=== PATIENT | female | born 1980 | race Caucasian/White ===

== ENCOUNTER 2021-08-26 08:04 | Outpatient (CLI) | payer OTHER, SELFPAY ==
--- NOTE | 2021-08-26 08:12 | XR_ITS ---
WS: [id number] THORACIC SPINE TECHNIQUE: 3 views of the thoracic spine CLINICAL INFORMATION: CHRONIC BACK PAIN COMPARISON: None. FINDINGS: Postoperative changes dorsal pedicle minna and screw fixation thoracic and lumbar spine. Laminar hooks in the upper thoracic spine. Pedicle screw fixation in the upper lumbar spine L1-L3. Interconnecting rods appear intact. Interbody bony fusion in the lower thoracic and upper lumbar spine. Osteopenia. T horacic kyphosis with bony fusion. IMPRESSION: Postoperative changes as described above. No acute appearing thoracic spine findings.
--- NOTE | 2021-08-26 08:12 | XR_ITS ---
WS: [id number] CERVICAL SPINE TECHNIQUE: 3 views of the cervical spine CLINICAL INFORMATION: CHRONIC BACK PAIN COMPARISON: None. FINDINGS: Normal cervical alignment. Normal C1-2 articulation. Mild disc space narrowing C7-T1. Normal preverte bral soft tissues. Normal dens. Postoperative changes partially visualized in the thoracic spine. XR/XR cervical spine 3V* [id number] IMPRESSION: Mild disc space narrowing C7-T1. Otherwise unremarkable cervical spine.
== END 2021-08-26 08:05 | disposition home or self-care (01) ==
LOC: RAD 08:10
PROVIDERS: PCP Clinical Nurse Specialist Adult Health; Visit Provider Clinical Nurse Specialist Adult Health
DX: M54.6 Pain in thoracic spine (principal); M54.2 Cervicalgia
CPT/HCPCS: 72040; 72072

== ENCOUNTER 2022-02-04 18:15 | Emergency (ER) | payer OTHER, SELFPAY ==
[2022-02-04 18:24] VITALS: BP 122/80; PULSE 84; RESP 16; TEMP 36.3; O2SAT 95; BMI 33.9
--- NOTE | 2022-02-04 18:27 | XRR_ITS ---
PROCEDURE INFORMATION: Exam: XR Left Shoulder Exam date and time: 02/04/2022 7:25 PM Age: 41 years old Clinical indication: Injury or trauma; Blunt trauma (contusions or hematomas); Shoulder; Injury date: 02-04-22; Injury details: Left arm pain after fall. Left arm pain after fall. ; Additional info: Trauma to left shoulder TECHNIQUE: Imaging protocol: Radiologic exam of the Left shoulder. Views: 2 or more views. COMPARISON: CR XR cervical spine 3V* [id number] 08/26/2021 8:28 AM FINDINGS: Bones/joints: No acute bony injury or malalignment in the left shoulder. Incompletely visualized surgical hardware in the thoracic spine. Soft tissues: Unremarkable soft tissues. XR/XR shoulder LT min 2V* [id number] IMPRESSION: No acute bony injury or malalignment in the left shoulder.
--- NOTE | 2022-02-04 18:27 | XRR_ITS ---
PROCEDURE INFORMATION: Exam: XR Left Wrist Exam date and time: 02/04/2022 7:33 PM Age: 41 years old Clinical indication: Injury or trauma; Fall; Blunt trauma (contusions or hematomas); Wrist; Left; Additional info: Trauma to left wrist. TECHNIQUE: Imaging protocol: Radiologic exam of the Left wrist. Views: 3 or more views. COMPARISON: No relevant prior studies available. FINDINGS: Bones/joints: Normal. Soft tissues: Normal. XR/XR wrist LT min 3V* [id number] IMPRESSION: No acute findings.
--- NOTE | 2022-02-04 19:32 | ED_ITS ---
HPI - Fall General: Chief Complaint: Fall Stated Complaint: fall/ L shoulder,arm and wrist pain Time Seen by Provider: 02/04/22 19:23 History of Present Illness: Patient is a 41-year-old female comes to the ED with left arm pain after fall. Occurred today just prior to arrival. Patient says she was walking outside and tripped over one of her cats and landed on her left arm and shoulder. She denies pain in her left wrist and left shoulder. Any movement in left arm worsens pain. Denies any head trauma or loss of consciousness. Associated symptoms-after fall: Denies abdominal pain, chest pain, headache(s), hematuria or neck pain Review of Systems Const: Denies: fever(s), chills or fatigue Eyes: Denies: change in vision or eye discomfort ENMT: Denies: throat pain, odynophagia, nasal discharge or nasal congestion Card: Denies: chest pain, palpitations, edema, swelling of feet/ankles, dyspnea on exertion or orthopnea Resp: Denies: dyspnea, productive cough or non-productive cough GI: Denies: abdominal pain, nausea, vomiting, diarrhea, constipation or hematochezia : Denies: flank pain, dysuria or hematuria Musc: Reports: extremity pain (Left shoulder and left wrist) and limited range of motion (Left shoulder left wrist due to pain); Denies: neck pain, back pain or extremity swelling Skin/Breast: Denies: rash or new lesions Neuro: Denies: headache(s), numbness in extremities or weakness in extremities PFS ED PFSH: Medical History Psychiatric care Surgical History No pertinent past surgical history Social History Smoking and tobacco status: current every day smoker (1/2 PPD) cigarettes Packs smoked per day: 0.5 Years cigarettes smoked: 37 Quit status (tobacco): has tried quititng Number of times tried to quit tobacco: 2 Second hand smoke exposure: No Smoking risk assessment/counseling performed?: No Alcohol intake: never Desire information about alcohol rehabilitation?: No Counseling given: No Desire information about substance/drug rehabilitation?: No Counseling given: No Physical Exam Const: COMMON NORMALS: no acute distress, patient oriented x3 and alert GENERAL APPEARANCE: cooperative and comfortable HENMT: COMMON NORMALS: normocephalic HEAD & SCALP: normocephalic MOUTH: Normal oral and palatal mucosa present THROAT: posterior oropharynx normal and uvula midline Neck/C-Spine: COMMON NORMALS: supple GENERAL: Yes normal visual inspection Resp: COMMON NORMALS: normal respiratory effort, No retractions, No use of accessory muscles and clear to auscultation bilaterally AUSCULTATION: clear to auscultation bilaterally Cardio: COMMON NORMALS: regular rate, regular rhythm, S1 normal heart sound present, S2 normal heart sound present, No gallops present (Cardio), No clicks present (Cardio), No murmurs present (Cardio) and Peripheral pulses 2+ throughout RATE: regular rate RHYTHM: regular rhythm HEART SOUNDS: S1 normal heart sound present and S2 normal heart sound present PERIPHERAL PULSES: Peripheral pulses 2+ throughout GI: COMMON NORMALS: Normal to inspection, nondistended, normoactive bowel sounds present, Soft to palpation, non-tender and no masses PALPATION: Yes Soft to palpation : COMMON NORMALS: Yes no CVA tenderness BLADDER/KIDNEY EXAM: Yes no CVA tenderness Back/Pelvis: COMMON NORMALS: no CVA tenderness Extremity: NARRATIVE EXTREMITY EXAM: Left shoulder?no visible deformity swelling noted. She has tenderness palpation over AC joint region. Limited range of motion due to pain. Neurovascular tact. Left wrist?no visible deformity or swelling noted. Full range of motion. Neurovascular intact. Neuro: COMMON NORMALS: patient oriented x3 SENSORIUM/ORIENTATION: Yes alert GAIT: Yes Normal gait present Skin: GENERAL SKIN EXAM: dry skin Course Vital Signs: Vital signs: Vital Signs Temperature 97.3 F L 02/04/22 18:24 Pulse Rate 84 02/04/22 18:24 Respiratory Rate 16 02/04/22 18:24 Blood Pressure 122/80 02/04/22 18:24 Pulse Oximetry 95 02/04/22 18:24 MDM - Fall Medical Decision Making Patient is a 41-year-old female comes to the ED with left arm pain after fall. Patient tripped over her cat outside and fell landed on her left arm and shoulder. Exam is benign. Vitals are stable. X-ray of left shoulder and left wrist showed no acute fractures or findings. Patient diagnosed with left arm pain and was discharged home with left shoulder sling. Follow-up with PCP in the next week for reevaluation. Return to ED precautions given. Patient understood and agreed with plan. Lab Data Radiology Impressions Wrist X-Ray 02/04/22 18:27 IMPRESSION: No acute findings. Discharge Plan Discharge Patient Disposition: Home Clinical Impression: Pain of left arm Condition: Stable Prescriptions: No Action azelastine 137 mcg (0.1 %) aerosol,spray 2 spray intranasal BID Rx Instructions: administer into each nostril ibuprofen 200 mg capsule 800 mg PO Q6H PRN acetaminophen [Tylenol] 325 mg capsule 650 mg PO BID PRN fexofenadine-pseudoephedrine [Heather-D 24 Hour] 180-240 mg tablet extended release 24 hr 1 tab PO QAM gabapentin 100 mg capsule 100 mg PO BID prazosin 5 mg capsule 10 mg PO .HS Qty: 60 2RF trazodone 100 mg tablet 100 mg PO .HS Qty: 30 2RF quetiapine [Seroquel XR] 150 mg tablet extended release 24 hr 150 mg PO .HS Qty: 30 2RF hydroxyzine pamoate 50 mg capsule 50 mg PO QID PRN (Reason: anxiety) Qty: 120 1RF duloxetine 60 mg capsule,delayed release(DR/EC) 120 mg PO DAILY Qty: 60 2RF bupropion HCl [Wellbutrin XL] 300 mg tablet extended release 24 hr 300 mg PO QAM Qty: 30 2RF Nucynta 50 mg tablet 50 mg PO BID PRN topiramate 100 mg tablet See Rx Instructions .ROUTE .COMPLEX Qty: 30 0RF Dose Instruction: Take 1 tablet by mouth once daily Rx Instructions: Take 1 tablet by mouth once daily Discharge Orders: Discharge ED (Routine); Ordered 02/04/22 Ordered By: Nicholas Prasad Referrals: Tai Jones NP [Primary Care Provider] - Discharge Diet: Regular Discharge Activity: Limit activity as instructed Activity Restrictions/Additional Instructions: Follow-up with medical provider as directed in the next 5 to 7 days for reevaluation. Continue taking all home medications as previously prescribed. Return to the ER or your medical provider if condition worsens. Please read and understand discharge instructions. Thank you for choosing [facility] for your healthcare needs today. Please realize this is an emergency room and that we are providing you with a medical screening exam and this may not be complete and all inclusive of all the testing and or work up that you may need to determine your ailment or severity of your illness. It is very important that you follow up as instructed or that you return to the Emergency Department should you have concerns or if your condition changes or worsens in any way. Coding Level of Care Code ED Room Cleaner for Akilah Fwd Exam Comprehensive
[2022-02-04] MEDS: ketorolac 60 mg/2 mL INJ IM (21:01)
[2022-02-04 21:30] VITALS: BP 129/81; PULSE 79; RESP 18; TEMP 36.6; O2SAT 99
== END 2022-02-04 21:30 | disposition home or self-care (01) ==
PROVIDERS: Emergency Provider Physician Assistant; PCP Clinical Nurse Specialist Adult Health
DX: M79.602 Pain in left arm (principal); F17.210 Nicotine dependence, cigarettes, uncomplicated
CPT/HCPCS: 73030; 73110; 96372; 99284; J1885

== ENCOUNTER 2022-06-13 06:40 | Emergency (ER) | payer OTHER, SELFPAY ==
[2022-06-13 06:45] VITALS: BP 179/97; PULSE 69; RESP 18; TEMP 37; O2SAT 96; BMI 32.3
--- NOTE | 2022-06-13 07:03 | ED_ITS ---
HPI - General Adult General: Chief complaint: General Medical Stated complaint: sob,sore throat Time Seen by Provider: 06/13/22 06:44 Source: patient Mode of arrival: ambulatory History of Present Illness: 42-year-old female presents emergency room with complaints of pharyngitis for the last 6 days. Increasing swelling and discomfort. Painful swallowing low-grade fever. Nonproductive cough. Has intermittently taken Tylenol with moderate relief of symptoms. Throat symptoms are progressively worsening however Onset (ago): day(s) Location: mouth (Throat) Severity: moderate Quality: sharp Pain Consistency: constant Relieving factors: none Exacerbating factors: none Associated symptoms: Reports fevers/chills; Deny chest pain, confusion, cough, diaphoresis, decreased appetite, dyspnea, headache(s), malaise, nausea, rash, palpitations, seizures, short of breath, syncope, vomiting or weakness Review of Systems Const: Reports: fever(s) and chills; Denies: malaise or diaphoresis ENMT: Reports: throat pain, enlarged tonsils, odynophagia and hoarseness; Denies: ear or mastoid pain, nasal discharge or nasal congestion Card: Denies: chest pain, palpitations or syncope Resp: Denies: dyspnea GI: Denies: abdominal pain, nausea, vomiting or hematemesis : Denies: flank pain, difficulty voiding, dysuria, urinary frequency or urinary urgency Musc: Denies: neck pain or back pain Skin/Breast: Denies: rash, pruritus or erythema Neuro: Denies: headache(s) or confusion PFS ED PFSH: Medical History Psychiatric care Surgical History No pertinent past surgical history Social History Smoking and tobacco status: current some day smoker cigarettes Packs smoked per day: 0.15 Years cigarettes smoked: 20 Quit status (tobacco): has tried quititng Number of times tried to quit tobacco: 2 Second hand smoke exposure: No Smoking risk assessment/counseling performed?: No Alcohol intake: current Alcohol intake frequency: holidays/special occasions only Alcohol type: hard liquor Desire information about alcohol rehabilitation?: No Counseling given: No Desire information about substance/drug rehabilitation?: No Counseling given: No Physical Exam Const: COMMON NORMALS: no acute distress GENERAL APPEARANCE: cooperative and comfortable ORIENTATION/CONSCIOUSNESS: Yes awake, Yes oriented to person, Yes oriented to place and Yes oriented to time HENMT: COMMON NORMALS: normocephalic, atraumatic, hearing grossly normal bilaterally, external ears normal, EAC's normal, TM's normal bilaterally, Normal nasal mucous membranes and turbinates present and moist oral mucous membranes HEAD & SCALP: normocephalic and atraumatic NOSE: Normal nasal mucous membranes and turbinates present EXTERNAL EAR: Yes external ears normal EXTERNAL AUDITORY CANAL: EAC's normal TYMPANIC MEMBRANE: TM's normal bilaterally THROAT: posterior oropharynx abnormal edema, erythema and exudates Neck/C-Spine: GENERAL: Yes lymphadenopathy Lymphadenopathy location: submandibular Resp: COMMON NORMALS: normal respiratory effort, No retractions, No use of accessory muscles and clear to auscultation bilaterally AUSCULTATION: clear to auscultation bilaterally Cardio: COMMON NORMALS: regular rate, regular rhythm and No murmurs present (Cardio) RATE: regular rate RHYTHM: regular rhythm GI: COMMON NORMALS: Soft to palpation and No hepatosplenomegaly present AUSCULTATION: Yes normoactive bowel sounds PALPATION: Yes Soft to palpation, No Tenderness to palpation present (GI), No Guarding due to palpation present (GI) and Yes No hepatosplenomegaly present Extremity: COMMON NORMALS: normal to inspection, capillary refill normal, no clubbing, cyanosis or edema, no calf tenderness and no pedal edema Neuro: SENSORIUM/ORIENTATION: Yes oriented to person, Yes oriented to place and Yes oriented to time Skin: COMMON NORMALS: no rashes or lesions noted GENERAL SKIN EXAM: no rashes or lesions noted Course Vital Signs: Vital signs: Vital Signs Temperature 98.6 F 06/13/22 06:45 Pulse Rate 69 06/13/22 06:45 Respiratory Rate 18 06/13/22 06:45 Blood Pressure 179/97 06/13/22 06:45 Pulse Oximetry 96 06/13/22 06:45 Oxygen Delivery Me thod 06/13/22 06:45 [facility] - General Adult Medical Decision Making Based on clinical presentation patient history of pharyngitis. Will treat with clarithromycin due to multiple allergies to 50 twice daily 10 days. Return to primary care if has recurrence. Medical Records I reviewed the patient's medical records. Discharge Plan Discharge Patient Disposition: Home Clinical Impression: Acute streptococcal pharyngitis Condition: Stable Prescriptions: New clarithromycin 250 mg tablet 250 mg PO BID 10 Days Qty: 20 0RF No Action azelastine 137 mcg (0.1 %) aerosol,spray 2 spray intranasal BID Rx Instructions: administer into each nostril ibuprofen 200 mg capsule 800 mg PO Q6H PRN acetaminophen [Tylenol] 325 mg capsule 650 mg PO BID PRN fexofenadine-pseudoephedrine [Heather-D 24 Hour] 180-240 mg tablet extended release 24 hr 1 tab PO QAM gabapentin 100 mg capsule 100 mg PO BID Nucynta 50 mg tablet 50 mg PO BID PRN bupropion HCl [Wellbutrin XL] 300 mg tablet extended release 24 hr 300 mg PO QAM Qty: 30 2RF divalproex [Depakote ER] 500 mg tablet extended release 24 hr 500 mg PO BID Qty: 60 2RF Rx Instructions: Take 2 tablets daily duloxetine 60 mg capsule,delayed release(DR/EC) 120 mg PO DAILY Qty: 60 2RF hydroxyzine pamoate 50 mg capsule 50 mg PO QID PRN (Reason: anxiety) Qty: 120 1RF prazosin 5 mg capsule 10 mg PO .HS Qty: 60 2RF quetiapine [Seroquel XR] 150 mg tablet extended release 24 hr 150 mg PO .HS Qty: 30 2RF ropinirole 1 mg tablet 2 mg PO .HS Qty: 60 2RF trazodone 100 mg tablet 100 mg PO .HS Qty: 30 2RF topiramate 50 mg tablet See Rx Instructions .ROUTE .COMPLEX Qty: 30 0RF Dose Instruction: Take 1 tablet by mouth once daily Rx Instructions: Take 1 tablet by mouth once daily Discharge Orders: Discharge ED (Routine); Ordered 06/13/22 Ordered By: Sathish Menon Referrals: Tai Jones STAFF COMMAND AND CONTROL OFFICER [Primary Care Provider] - Patient Instructions: Opioid Safety, Pain Management Activity Restrictions/Additional Instructions: You were seen for pharyngitis. Based on your exam is most likely a strep pharyngitis we will treat with clarithromycin 250 mg 1 pill twice daily for 10 days complete the full course of antibiotics even if you begin to feel better. Coding Level of Care Code ED Bindery Machine Operator for Akilah Strong
== END 2022-06-13 07:31 | disposition home or self-care (01) ==
PROVIDERS: Emergency Provider Family Medicine; PCP Clinical Nurse Specialist Adult Health
DX: J02.0 Streptococcal pharyngitis (principal); F17.210 Nicotine dependence, cigarettes, uncomplicated
CPT/HCPCS: 99283

== ENCOUNTER 2022-12-02 22:14 | Emergency (ER) | payer OTHER, SELFPAY ==
[2022-12-02 22:31] VITALS: BP 148/92; PULSE 81; RESP 14; TEMP 36.6; O2SAT 98; BMI 35.5
[2022-12-02 23:39] VITALS: BP 127/88; PULSE 76; RESP 15; TEMP 36.7; O2SAT 97
--- NOTE | 2022-12-03 01:23 | ED_ITS ---
HPI - Eye Problem General: Chief complaint: Eye Problems Stated complaint: eye pain, blurry vision History of Present Illness: 42-year-old female comes in today with crusting in the eyes and worsening symptoms since Thursday. Patient has been using [id number] eye care medications with minimal to no relief. Patient had used some antibiotic eyedrops leftover from her grandsons treatment for recent eye infection. Patient appears nontoxic. Patient appears no acute distress. Associated symptoms: Reports headache(s); Denies nausea, neck pain or vomiting Review of Systems Const: Reports: chills Eyes: Reports: eye discharge and eye redness ENMT: Reports: throat pain, nasal congestion and sinus pain Card: Denies: chest pain Resp: Denies: dyspnea GI: Denies: nausea or vomiting : Denies: flank pain Musc: Denies: neck pain Skin/Breast: Denies: rash Neuro: Reports: headache(s) PFS ED PFSH: Medical History Psychiatric care Surgical History No pertinent past surgical history Social History Smoking and tobacco status: current some day smoker cigarettes Packs smoked per day: 0.15 Years cigarettes smoked: 20 Quit status (tobacco): has tried quititng Number of times tried to quit tobacco: 2 Second hand smoke exposure: No Smoking risk assessment/counseling performed?: No Alcohol intake: current Alcohol intake frequency: holidays/special occasions only Alcohol type: hard liquor Desire information about alcohol rehabilitation?: No Counseling given: No Substance/Drug Use: former Desire information about substance/drug rehabilitation?: No Counseling given: No Physical Exam Const: COMMON NORMALS: alert HENMT: COMMON NORMALS: normocephalic HEAD & SCALP: normocephalic NOSE: Nasal discharge present THROAT: posterior oropharynx normal Resp: COMMON NORMALS: normal respiratory effort and clear to auscultation bilaterally AUSCULTATION: clear to auscultation bilaterally Cardio: COMMON NORMALS: regular rate and regular rhythm RATE: regular rate RHYTHM: regular rhythm GI: COMMON NORMALS: Soft to palpation PALPATION: Yes Soft to palpation Back/Pelvis: COMMON NORMALS: thoracic and lumbar spine normal to inspection Extremity: COMMON NORMALS: normal to inspection Neuro: SENSORIUM/ORIENTATION: Yes alert Skin: COMMON NORMALS: turgor normal GENERAL SKIN EXAM: turgor normal Course Vital Signs: Vital signs: Vital Signs Temperature 98.0 F 12/02/22 23:39 Pulse Rate 66 12/03/22 01:50 Respiratory Rate 20 H 12/03/22 01:50 Blood Pressure 132/81 12/03/22 01:50 Pulse Oximetry 97 12/03/22 01:50 Oxygen Delivery Me thod Room Air 12/02/22 23:39 MDM - Eye Problem Medical Decision Making 42-year-old female comes in today with eye drainage and irritation. On exam respirations are even lungs are clear to auscultation. Patient sinus pressure on palpation. Vital signs are normal. Differential diagnosis includes but not limited to upper respiratory infection, bacterial sinusitis, bacterial conjunctivitis, viral syndrome. Believe patient probably has a viral syndrome with a secondary bacterial infection. We will go ahead and treat with antibiotics and a dose of steroid for symptoms. Patient reported understanding and agreed to plan. Patient be kept on eyedrops for 7 days. Discharge Plan Discharge Patient Disposition: Home Clinical Impression: Acute bacterial rhinosinusitis Conjunctivitis Qualifiers: Conjunctivitis type: acute Acute conjunctivitis type: unspecified Laterality: bilateral Qualified Code(s): H10.33 - Unspecified acute conjunctivitis, bilateral Condition: Stable Prescriptions: New azithromycin 250 mg tablet 250 mg PO DAILY Qty: 4 0RF No Action azelastine 137 mcg (0.1 %) aerosol,spray 2 spray intranasal BID Rx Instructions: administer into each nostril ibuprofen 200 mg capsule 800 mg PO Q6H PRN acetaminophen [Tylenol] 325 mg capsule 650 mg PO BID PRN fexofenadine-pseudoephedrine [Heather-D 24 Hour] 180-240 mg tablet extended release 24 hr 1 tab PO QAM gabapentin 100 mg capsule 100 mg PO BID Nucynta 50 mg tablet 50 mg PO BID PRN bupropion HCl [Wellbutrin XL] 300 mg tablet extended release 24 hr 300 mg PO QAM Qty: 30 2RF divalproex [Depakote ER] 500 mg tablet extended release 24 hr 500 mg PO BID Qty: 60 2RF Rx Instructions: Take 2 tablets daily duloxetine 60 mg capsule,delayed release(DR/EC) 120 mg PO DAILY Qty: 60 2RF hydroxyzine pamoate 50 mg capsule 50 mg PO QID PRN (Reason: anxiety) Qty: 120 1RF prazosin 5 mg capsule 10 mg PO .HS Qty: 60 2RF quetiapine [Seroquel XR] 150 mg tablet extended release 24 hr 150 mg PO .HS Qty: 30 2RF ropinirole 1 mg tablet 2 mg PO .HS Qty: 60 2RF trazodone 100 mg tablet 100 mg PO .HS Qty: 30 2RF topiramate 50 mg tablet See Rx Instructions .ROUTE .COMPLEX Qty: 30 0RF Dose Instruction: Take 1 tablet by mouth once daily Rx Instructions: Take 1 tablet by mouth once daily Discharge Orders: Discharge ED (Routine); Ordered 12/03/22 Ordered By: Rubens Beatty Referrals: Tai Jones, ENVIRONMENTAL FIELD PROFESSIONAL [Primary Care Provider] - Patient Instructions: Infectious Conjunctivitis - Adult Activity Restrictions/Additional Instructions: Good handwashing. Drink plenty of water and fluids. Use acetaminophen and ibuprofen for pain. Activity as tolerated. Follow-up with primary care for further instructions. Coding Level of Care Code ED Shot Core Drill Operator Helper for Akilah Strong
[2022-12-03] MEDS: azithromycin 250 mg Tablet 500 MG PO (01:37)
[2022-12-03] MEDS: dexamethasone 10 mg/mL INJ IM (01:38)
[2022-12-03] MEDS: neomycin-poly-dex Op 5 mL Btl 2 DROP EYE-BOTH (01:45)
[2022-12-03 01:50] VITALS: BP 132/81; PULSE 66; RESP 20; O2SAT 97
== END 2022-12-03 01:52 | disposition home or self-care (01) ==
PROVIDERS: Emergency Provider Nurse Practitioner Family; PCP Clinical Nurse Specialist Adult Health
DX: H10.33 Unspecified acute conjunctivitis, bilateral (principal); J01.90 Acute sinusitis, unspecified; B96.89 Other specified bacterial agents as the cause of diseases classified elsewhere; F17.210 Nicotine dependence, cigarettes, uncomplicated
CPT/HCPCS: 96372; 99284; J1100; Q0144